=== PATIENT | female | born 1985 | race Caucasian/White ===

== ENCOUNTER → 2018-09-05 | Day surgery (SDC) | payer OTHER ==
--- NOTE | 2018-09-06 00:13 | OP ---
DATE OF OPERATION: 09/05/2018 PREOPERATIVE DIAGNOSIS: Right breast complex cyst. POSTOPERATIVE DIAGNOSIS: Right breast complex cyst, 8 o'clock, 4 cm from nipple. PROCEDURE: Right breast ultrasound guided cyst aspiration. ANESTHESIA: Local. ATTENDING SURGEON: Bozena Howell M.D. ESTIMATED BLOOD LOSS: Minimal. COMPLICATIONS: None. DESCRIPTION OF PROCEDURE: Patient was made aware of the risks and benefits of the procedure and consented. She was placed in the supine position under sterile conditions. 1% lidocaine with local anesthesia, an 18-gauge needle under ultrasound guidance was used to aspirate completely the cyst with no residual nodularity . The fluid was 0.5 mL of nonbloody cloudy yellow fluid. This was not submitted to pathology. The patient tolerated the procedure well. Sterile dressing was applied. Return to office in 6 months for repeat examination and right ultrasound. BOZENA HOWELL M.D. [id number]
== END | disposition home or self-care (01) ==
LOC: FRADUS-SUR 12:49
PROVIDERS: ATTEND Surgery Surgical Oncology
PROC: 0H9T3ZX Drainage of Right Breast, Percutaneous Approach, Diagnostic (ICD-10-PCS; principal; 2018-09-05)
DX: N60.01 Solitary cyst of right breast (principal)
CPT/HCPCS: 76942-TC